=== PATIENT | female | born 1955 | race Caucasian/White ===

== ENCOUNTER 2019-07-16 12:24 | Day surgery (SDC) | payer OTHER, SELFPAY ==
[2019-07-16] VITALS (7 sets, daily range): BP systolic 110–170; BP diastolic 53–72; PULSE 57–64; RESP 15–16; TEMP 36.3–36.4; O2SAT 93–99; BMI 28.3
[2019-07-16] MEDS: Lactated Ringers 1,000 ML 100 ML IV (13:05)
[2019-07-16] MEDS: Vancomycin IV 1,000 MG/200 ML BAG 200 MG IV (13:06)
--- NOTE | 2019-07-16 14:05 | RAD_ITS ---
STUDY: X-RAY - PELVIS REASON FOR EXAM: Female, 63 years old. Therapy injection TECHNIQUE: 3 intraoperative fluoroscopic views were obtained. COMPARISON: None. FINDINGS: 3 intraoperative fluoroscopic or obtained during an injection procedure of the pelvis Correlation with the operative report is recommended. RAD/Pelvis 1 or 2 Views IMPRESSION: As above. Electronically Signed: Luis Daniel Merino, at 15:02 EDT Tel , Service support ,
--- NOTE | 2019-07-16 15:29 | OP.PCM_ITS ---
Problem List (1) Urgency of micturition Status: Acute (2) Urgency incontinence Status: Acute (3) Nocturia Status: Acute (4) Urinary frequency Status: Acute Report of Operation Date of Procedure: 07/16/19 Pre-Operative Diagnosis: urinary urgency, frequency, urge incontinence and nocturia Post-Operative Diagnosis: same Surgery/Procedure Performed:: Interstim Stage 1 Type of Anesthesia:: MAC Estimated Blood Loss (mL): 10cc Description of Procedure: The patient is a 63-year-old female who is seen me in the office for issues with urinary urgency and incontinence. After failing first and second line management, she agreed to proceed with further evaluation. She underwent urodynamics and cystoscopy. After discussing all the options, she elected to proceed with InterStim stage I. Informed consent was obtained. The patient was taken to the operating room and placed in a prone position on the operating room table. She was secured to the table and appropriately padded. Anesthesia monitored the head, neck, airway, IV access and vital signs throughout the case. Once anesthesia was appropriately administered the patient was prepped and draped in usual sterile fashion. Using fluoroscopic visualization, the landmarks were marked on her skin and she was anesthetized using lidocaine with epinephrine. The patient's right S3 foramen was intubated with a needle, and despite repositioning there was no zack or toe flexion achieved. The decision was made to place a needle into the left S3 foramen which immediately received good response. At this point the needle site was dilated and the lead was inserted. Good response was obtained on all 4 leads. The lead was then tunneled into the selected pocket site which was developed on the patient's right side following infiltration with lidocaine. The lead was then tunneled into the pocket site and the boot was placed. The lead was secured into the lead extension using the screwdriver. The lead extension was then tunneled in a cephalad position. The pocket site and the lead insertion site were then closed with 3-0 Vicryl followed by 4-0 subcuticular suturing. The lead insertion site was covered with Steri-Strips. The pocket site was c overed with Dermabond. The battery was then connected and secured with an OpSite followed by tape. The patient was then awakened and taken to the recovery room in good condition. There were no complications during this procedure. Grafts/Implants Used: Interstim lead, lead extention - Complications none - Admit VTE Documentation VTE Present on Admission: No VTE Mechan Device Prophylaxis: None VTE Pharm Prophylaxis ordered?: No Reason prophylaxis not ordered:: Treatment Not Indicated
--- NOTE | 2019-07-16 15:36 | PCM.DC.URO ---
Discharge Diet: No Restrictions Discharge Activity: May not drive while taking narcotic pain medications., - - no lifting over 5 pounds, limit stretching and bending as much as possible May resume sexual activity in: 3 weeks Call your doctor if your incision/area has: Continuous Slow Oozing, Sudden Increased Bleeding, Increased Pain/ Swelling, Increased Redness, Foul Smelling Discharge, Swelling at the incision site Call your doctor if you observe: Fever of 101 or Higher, Inability to urinate, Inability to have a bowel movement, Uncontrolled pain Cleanse incision/area with: Keep Dressing Clean & Dry Allergies/Adverse Reactions: Allergies codeine Allergy (Verified 07/16/19 12:46) Hives fluconazole Allergy (Verified 07/16/19 12:46) Hives Sulfa (Sulfonamide Antibiotics) Allergy (Verified 07/16/19 12:46) Hives prednisone Adverse Reaction (Verified 07/16/19 12:46) severe headache Medications to take at Discharge Ascorbic Acid [C Complex] 1,000 mg PO BID 07/10/19 Bioflav,Lemon/Vit Bcomp,C [Ra Ear Care Tablet] 1 ea PO DAILY 07/10/19 Cyanocobalamin (Vitamin B-12) [Vitamin B12] 2,500 mcg PO DAILY 07/10/19 Gabapentin [Neurontin] 300 mg PO QHS 07/10/19 Ginkgo Biloba 120 mg PO BID 07/10/19 Glucosa Mendes 2Kcl/Chondroitin Mendes [Glucosamine-Chondroitin Caplet] 1 ea PO BID 07/10/19 L.acidoph,Paracasei, B.lactis [Probiotic] 1 ea PO BID 07/10/19 Lysine 500 mg PO DAILY 07/10/19 Melatonin/Pyridoxine [Melatonin 5 mg Tablet] 1 ea PO QHS 07/10/19 Methylsulfonylmethane [MSM] 1,000 mg PO BID 07/10/19 Metoprolol(XL)Succ [Toprol Xl (Beta Braden)] 200 mg PO QHS 07/10/19 Omeprazole 40 mg PO DAILY 07/10/19 Topiramate [Topamax] 50 mg PO DAILY 07/10/19 Vertisil 1 cap PO BID 07/10/19 Vitamin E (Dl,Tocopheryl Acet) [Vitamin E] 180 unit PO QHS 07/10/19 Cephalexin [Keflex] 500 mg PO Q12 3 Days #6 cap 07/16/19 Oxycodone HCl/Acetaminophen [Percocet 5/325] 2 tab PO Q8H PRN PRN 7 Days #20 tab 07/16/19 The following prescriptions were given: Cephalexin [Keflex] 500 mg PO Q12 3 Days #6 cap Transmission Status: Received by [address] Oxycodone HCl/Acetaminophen [Percocet 5/325] 2 tab PO Q8H PRN PRN 7 Days #20 tab PRN Reason: Pain Transmission Status: Received by [address] Primary Care Physician: NIKITA ESCAMILLA [Other] Test Results: Test results from this visit will be discussed in further detail at your follow-up appointment, if applicable. Please Follow Up With: Marissa Silvestre MD When: call office for appt Proposed Discharge Date: 07/16/19
[2019-07-16] MEDS: oxyCODONE 5 MG Tablet 10 MG PO (15:51)
[2019-07-16] MEDS: Acetaminophen 325 MG Tablet 650 MG PO (15:51)
== END 2019-07-16 17:36 | disposition home or self-care (01) ==
LOC: SDC 12:27 → AC 12:30
PROVIDERS: Referring Provider Urology; Visit Provider Urology
PROC: (CPT 64561; principal; 2019-07-16 13:55)
DX: N39.41 Urge incontinence (principal); R35.1 Nocturia; R35.0 Frequency of micturition; I10 Essential (primary) hypertension; Z79.899 Other long term (current) drug therapy
CPT/HCPCS: 00400; 64561; 72170; 76000; J7120; C1778; J2405

== ENCOUNTER 2019-07-26 09:52 | Day surgery (SDC) | payer OTHER, SELFPAY ==
[2019-07-16 12:48] VITALS: BMI 28.3
[2019-07-26 10:15] VITALS: BP 151/88; PULSE 59; RESP 16; TEMP 36.6; O2SAT 97; BMI 28.0
[2019-07-26] MEDS: Lactated Ringers 1,000 ML 100 ML IV (10:23)
[2019-07-26] MEDS: Vancomycin IV 1,000 MG/200 ML BAG 200 MG IV (11:47)
[2019-07-26 12:24] VITALS: BP 133/82; BP 151/88; PULSE 62; RESP 14; TEMP 36.6; O2SAT 98
[2019-07-26 12:30] VITALS: BP 148/68; BP 151/88; PULSE 62; RESP 16; O2SAT 100
--- NOTE | 2019-07-26 12:32 | DCINST_ITS ---
Discharge Diet: No Restrictions Discharge Activity: May not drive while taking narcotic pain medications., - - may shower on Monday May resume sexual activity in: 1 week Call your doctor if your incision/area has: Continuous Slow Oozing, Sudden Increased Bleeding, Increased Pain/ Swelling, Increased Redness, Foul Smelling Discharge, Swelling at the incision site Call your doctor if you observe: Fever of 101 or Higher, Inability to urinate, Inability to have a bowel movement Allergies/Adverse Reactions: Allergies codeine Allergy (Verified 07/26/19 10:13) Hives fluconazole Allergy (Verified 07/26/19 10:13) Hives oxycodone Allergy (Verified 07/26/19 10:13) Itching Sulfa (Sulfonamide Antibiotics) Allergy (Verified 07/26/19 10:13) Hives prednisone Adverse Reaction (Verified 07/26/19 10:13) severe headache Medications to take at Discharge Ascorbic Acid [C Complex] 1,000 mg PO BID 07/10/19 Bioflav,Lemon/Vit Bcomp,C [Ra Ear Care Tablet] 1 ea PO DAILY 07/10/19 Cyanocobalamin (Vitamin B-12) [Vitamin B12] 2,500 mcg PO DAILY 07/10/19 Gabapentin [Neurontin] 300 mg PO QHS 07/10/19 Ginkgo Biloba 120 mg PO BID 07/10/19 Glucosa Mendes 2Kcl/Chondroitin Mendes [Glucosamine-Chondroitin Caplet] 1 ea PO BID 07/10/19 L.acidoph,Paracasei, B.lactis [Probiotic] 1 ea PO BID 07/10/19 Lysine 500 mg PO DAILY 07/10/19 Melatonin/Pyridoxine [Melatonin 5 mg Tablet] 1 ea PO QHS 07/10/19 Methylsulfonylmethane [MSM] 1,000 mg PO BID 07/10/19 Metoprolol(XL)Succ [Toprol Xl (Beta Braden)] 200 mg PO QHS 07/10/19 Omeprazole 40 mg PO DAILY 07/10/19 Topiramate [Topamax] 50 mg PO DAILY 07/10/19 Vertisil 1 cap PO BID 07/10/19 Vitamin E (Dl,Tocopheryl Acet) [Vitamin E] 180 unit PO QHS 07/10/19 Cephalexin [Keflex] 500 mg PO Q12 3 Days #6 cap 07/26/19 Oxycodone HCl/Acetaminophen [Percocet 5/325] 2 tablet PO Q8H PRN PRN 7 Days #10 tablet 07/26/19 The following prescriptions were given: Cephalexin [Keflex] 500 mg PO Q12 3 Days #6 cap Transmission Status: Pending to [address] Oxycodone HCl/Acetaminophen [Percocet 5/325] 2 tablet PO Q8H PRN PRN 7 Days #10 tablet PRN Reason: Pain Transmission Status: Received by [address] Primary Care Physician: NIKITA ESCAMILLA [Other] Test Results: Test results from this visit will be discussed in further detail at your follow- up appointment, if applicable. Please Follow Up With: Marissa Silvestre MD When: call for appt Proposed Discharge Date: 07/26/19
--- NOTE | 2019-07-26 12:34 | OP.PCM_ITS ---
Problem List (1) Urgency of micturition Status: Acute (2) Urgency incontinence Status: Acute (3) Nocturia Status: Acute (4) Urinary frequency Status: Acute Report of Operation Date of Procedure: 07/26/19 Pre-Operative Diagnosis: urgency, frequency, nocturia and urge incontinence Post-Operative Diagnosis: same Surgery/Procedure Performed:: Interstim stage 2 Type of Anesthesia:: MAC Description of Procedure: The patient is a 63-year-old female who had a successful stage I InterStim and now presents for implantation of her IPG. Informed consent was obtained. It was taken to the operating room and placed in a prone position on the o perating room table, and was secured into position. Anesthesia monitored the head, neck, airway, IV access and vital signs throughout the case. Once anesthesia was administered, the patient was prepped and draped in usual sterile fashion. The incision over the boot was infiltrated with lidocaine and then opened using a knife followed by hemostats. The boot was brought into the field and the sutures were cut. Using the torque wrench the lead extension was removed and cut from the field. The pocket site was enlarged using blunt dissection and Bovie cautery. Hemostasis was achieved. The InterStim lead was cleaned and inserted into the IPG and secured using the torque wrench. The IPG was then placed into the pocket which was tested for impedances which were negative. The incision was then closed with 3-0 interrupted followed by 4-0 subcuticular sutures. Dermabond was then used on the skin. The patient was then awakened and taken to the recovery room in good condition. There were no complications during the procedure. Grafts/Implants Used: Interstim IPG - Complications none - Admit VTE Documentation VTE Present on Admission: No VTE Mechan Device Prophylaxis: None VTE Pharm Prophylaxis ordered?: No Reason prophylaxis not ordered:: Treatment Not Indicated
[2019-07-26 12:35] VITALS: BP 140/66; BP 151/88; PULSE 51; RESP 16; O2SAT 100
[2019-07-26 12:43] VITALS: BP 137/73; BP 151/88; PULSE 53; RESP 16; TEMP 36.5; O2SAT 100
[2019-07-26 13:22] VITALS: BP 136/79; BP 151/88; PULSE 88; RESP 16; TEMP 36.5; O2SAT 100
== END 2019-07-26 13:29 | disposition home or self-care (01) ==
LOC: SDC 09:52 → AC 09:54
PROVIDERS: Referring Provider Urology; Visit Provider Urology
PROC: (CPT 64590; principal; 2019-07-26 11:30)
DX: N39.41 Urge incontinence (principal); R35.0 Frequency of micturition; R35.1 Nocturia; I10 Essential (primary) hypertension; K21.9 Gastro-esophageal reflux disease without esophagitis; G43.909 Migraine, unspecified, not intractable, without status migrainosus; Z79.899 Other long term (current) drug therapy
CPT/HCPCS: 64590; J7120; C1767; J2405

== ENCOUNTER → 2020-06-18 11:14 | Outpatient (CLI) | payer OTHER, SELFPAY ==
--- NOTE | 2020-06-18 11:19 | US_ITS ---
STUDY: RENAL ULTRASOUND - COMPLETE REASON FOR EXAM: Female, 64 years old. uti TECHNIQUE: Ultrasound evaluation of the kidneys was performed with real-time and static whiting-scale imaging. COMPARISON: None. FINDINGS: RIGHT KIDNEY: Normal location of the right kidney, which is normal in size. The right kidney measures 12.4 x 5.6 x 5.7 cm. There is a normal cortex of the right kidney. The renal cortex measures 1.5 cm. There is no right renal mass or cyst. There are no right renal calculi. There is no right hydronephrosis. DISTAL RIGHT URETER: There is non-visualization of the distal right ureter. There is no demonstrated right ureterovesical junction calculus. There is a visualized right ureteral jet. LEFT KIDNEY: Normal location of the left kidney, which is normal in size. The left kidney measures 12.9 x 5.0 x 5.8 cm. There is a normal cortex of the left kidney. The renal cortex measures 1.5 cm. There is no left renal mass or cyst. There are no left renal calculi. There is no left hydronephrosis. DISTAL LEFT URETER: There is non-visualization of the distal left ureter. There is no demonstrated left ureterovesical junction calculus. There is a visualized left ureteral jet. BLADDER: The distended urinary bladder has a volume of 280 ml. There is a normal wall thickness of the distended urinary bladder. A 1.4 cm highly echogenic structure seen along the posterior wall of the bladder. This may be a bladder stone. Cannot exclude mass. Consider cystoscopy. US/Kidney and Bladder IMPRESSION: Normal ultrasound of the kidneys. Probable bladder stone but cannot mass. Cystoscopy should be considered. Electronically Signed: Ciaran Young MD at 23:12 EST , Service support ,
== END ==
PROVIDERS: Referring Provider Urology; Visit Provider Urology
DX: N39.0 Urinary tract infection, site not specified (principal)
CPT/HCPCS: 76770

== ENCOUNTER 2020-08-04 06:41 | Day surgery (SDC) | payer OTHER, SELFPAY ==
[2020-08-04 07:22] VITALS: BP 133/78; PULSE 50; RESP 18; TEMP 36.3; O2SAT 98; BMI 27.6
[2020-08-04] MEDS: Lactated Ringers 1,000 ML 100 ML IV (07:47)
--- NOTE | 2020-08-04 07:52 | PCM.OPRPT ---
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 She was evaluated with imaging which revealed a calcification in the area of the bladder. An attempt was made at cystoscopy in the office, she was unable to tolerate dilation of her urethral stenosis in order to allow for passage of the cystoscope. Informed consent was obtained for the procedure today. Patient was taken to the operating room and placed on the operating room table. Anesthesia monitored the head, neck, airway, IV access and vital signs throughout the case. Once anesthesia was appropriately administered the patient was placed into dorsal lithotomy position and was prepped and draped in usual sterile fashion. At this time the urethra was dilated from 16 [place] to 26 [place] without difficulty. The cystoscope was then passed through the urethra into the urinary bladder under direct visualization. The ureteral orifices were located in the correct anatomic position. The right ureteral orifice appeared to be somewhat edematous, and a whistle-tip catheter was used to intubated past without any evidence of obstruction. No stone, foreign body, mass, ulceration, or other mucosal abnormalities were identified. At this time the patient's bladder was then emptied and the case was terminated. She was awakened and taken to the recovery room in good condition. There were no complications during this procedure. Grafts/Implants Used: none - Complications None - Admit VTE Documentation VTE Present on Admission: Yes VTE Mechan Device Prophylaxis: SCD's VTE Pharm Prophylaxis ordered?: No Reason prophylaxis not ordered:: Treatment Not Indicated
--- NOTE | 2020-08-04 07:58 | SUR.PREOP ---
I CALLED BACK TO [facility] AND SPOKE TO THE NURSE TO SEE IF FULGATION SHOULD BE ADDED TO THE CONSENT IT IS IN THE COMPUTER. SHE STATES THAT SHE DOESN'T NEED IT ADDED SHE IS NOT GOING TO DO IT.
[2020-08-04] MEDS: Cefazolin 2 GM in 0.9% Normal Saline 100 ML IV (08:14)
--- NOTE | 2020-08-04 08:39 | PCM.DC.URO ---
Discharge Diet: No Restrictions Discharge Activity: Return to Normal Activity May resume sexual activity in: No Restrictions Call your doctor if you observe: Fever of 101 or Higher, Inability to urinate, Inability to have a bowel movement Allergies/Adverse Reactions: Allergies codeine Allergy (Verified 08/04/20 07:20) Hives fluconazole Allergy (Verified 08/04/20 07:20) Hives oxycodone Allergy (Verified 08/04/20 07:20) Itching Sulfa (Sulfonamide Antibiotics) Allergy (Verified 08/04/20 07:20) Hives prednisone Adverse Reaction (Verified 08/04/20 07:20) severe headache Medications to take at Discharge Ascorbic Acid [C Complex] 1,000 mg PO BID 07/10/19 Bioflav,Lemon/Vit Bcomp,C [Ra Ear Care Tablet] 1 ea PO DAILY 07/10/19 Cyanocobalamin (Vitamin B-12) [Vitamin B12] 2,500 mcg PO DAILY 07/10/19 Gabapentin [Neurontin] 300 mg PO QHS 07/10/19 Ginkgo Biloba 120 mg PO BID 07/10/19 Glucosa Mendes 2Kcl/Chondroitin Mendes [Glucosamine-Chondroitin Caplet] 1 ea PO BID 07/10/19 L.acidoph,Paracasei, B.lactis [Probiotic] 1 ea PO BID 07/10/19 Lysine 500 mg PO DAILY 07/10/19 Melatonin/Pyridoxine [Melatonin 5 mg Tablet] 1 ea PO QHS 07/10/19 Methylsulfonylmethane [MSM] 1,000 mg PO BID 07/10/19 Metoprolol(XL)Succ [Toprol Xl (Beta Braden)] 200 mg PO QHS 07/10/19 Omeprazole 40 mg PO DAILY 07/10/19 Topiramate [Topamax] 50 mg PO DAILY 07/10/19 Vertisil 1 cap PO BID 07/10/19 Vitamin E (Dl,Tocopheryl Acet) [Vitamin E] 180 unit PO QHS 07/10/19 Cephalexin [Keflex] 500 mg PO Q12 2 Days #4 capsule 08/04/20 Losartan-Hctz 50-12.5 mg Tab 1 tablet PO DAILY 08/04/20 The following prescriptions were given: Cephalexin [Keflex] 500 mg PO Q12 2 Days #4 capsule Transmission Status: Pending to [facility] Primary Care Physician: NIKITA ESCAMILLA [Other] Test Results: Test results from this visit will be discussed in further detail at your follow-up appointment, if applicable. Please Follow Up With: Marissa Silvestre MD When: call office for appt in 2 weeks Proposed Discharge Date: 08/04/20
[2020-08-04 08:43] VITALS: BP 132/69; BP 133/78; PULSE 55; RESP 14; TEMP 36.8; O2SAT 94
[2020-08-04 09:03] VITALS: BP 123/7; BP 133/78; PULSE 53; RESP 16; O2SAT 96
[2020-08-04 09:15] VITALS: BP 133/78; BP 136/79; PULSE 45; RESP 14; TEMP 36.3; O2SAT 99
[2020-08-04 09:53] VITALS: BP 133/78; BP 151/68; PULSE 48; RESP 16; TEMP 36.1; O2SAT 97
== END 2020-08-04 10:10 | disposition home or self-care (01) ==
LOC: SDC 06:51 → AC 06:54
PROVIDERS: Referring Provider Urology; Visit Provider Urology
PROC: 0TBB8ZX Excision of Bladder, Via Natural or Artificial Opening Endoscopic, Diagnostic (ICD-10-PCS; CPT 52281; principal; 2020-08-04 08:10)
DX: N35.92 Unspecified urethral stricture, female (principal); N39.0 Urinary tract infection, site not specified; I10 Essential (primary) hypertension; K21.9 Gastro-esophageal reflux disease without esophagitis; G43.909 Migraine, unspecified, not intractable, without status migrainosus; Z79.899 Other long term (current) drug therapy; Z20.822 Contact with and (suspected) exposure to COVID-19
CPT/HCPCS: 52281; 87426; C9803; J7120; J2405

== ENCOUNTER → 2020-11-06 14:46 | Outpatient (CLI) | payer OTHER, SELFPAY ==
--- NOTE | 2020-11-06 14:52 | CT_ITS ---
STUDY: CT ABDOMEN AND PELVIS WITH AND WITHOUT CONTRAST-CT UROGRAM REASON FOR EXAM: Female, 65 years old. Gross hematuria RADIATION DOSAGE (If Supplied By Facility): CTDIvol = ( 21.26 ) mGy, DLP = ( 3312.83 ) mGycm TECHNIQUE: Transaxial images were obtained from the dome of the diaphragm to the symphysis pubis without oral contrast. ml of 100mL Isovue-300 contrast was administered. Sagittal and coronal images were reconstructed. CT urogram protocol with imaging in the noncontrasted, corticomedullary and delayed phases. Individualized dose optimization techniques were used for this CT. COMPARISON: None. FINDINGS: The visualized lung bases are unremarkable. The visualized portions of the heart are within normal limits. No hepatic solid masses. Nonenhancing cysts of the lateral right hepatic lobe is compatible with simple cysts. No required imaging follow-up needed given high likelihood of benign nature. There are surgical clips in the gallbladder fossa consistent with a prior cholecystectomy. There are multiple benign calcified granulomata of the liver and spleen. Normal pancreas. Normal bilateral adrenal glands. Punctate calculus of the left kidney measures [address] urographic images demonstrate excellent opacification of the ureters. No filling defects or ureteral masses. Urinary bladder fills normally. No bladder wall thickening. Normal visualized stomach. Normal small intestine. Moderate fecal retention without colon wall thickening. The appendix is visualized and appears normal. Normal abdominal aorta. Normal inferior vena cava. Normal retroperitoneum. Neurostimulator device with lead extending anterior to the left side of sacrum. Normal abdominal wall. There are diffuse degenerative changes of the visualized lumbar spine. CT/CT Abd/Pelvis W/WO Contrast IMPRESSION: 1. Nonobstructing punctate left renal calculus. No ureteral mass/obstruction. No hydronephrosis. Electronically Signed: Trung Leroy MD ([place]) at 15:25 EDT , Service support ,
[2020-11-06 15:06] LABS: CREATININE FINGERSTICK 0.7 mg/dL (0.55-1.02); EGFR FINGERSTICK > 60.0000 mL/min (>60)
== END ==
PROVIDERS: Referring Provider Urology; Visit Provider Urology
DX: R31.0 Gross hematuria (principal)
CPT/HCPCS: 74178; Q9967

== ENCOUNTER → 2024-12-16 | Outpatient (CLI) | payer OTHER, MEDICARE, SELFPAY | END | disposition home or self-care (01) | PROVIDERS: Visit Provider Urology | DX: K61.0 Anal abscess (principal); K61.1 Rectal abscess | CPT/HCPCS: 87070; 87186; 87205 ==